=== PATIENT | male | born 1980 | race Caucasian/White ===

== ENCOUNTER 2018-06-14 13:52 | Emergency (ER) | payer MEDICARE, MEDICAID ==
--- NOTE | 2018-06-14 14:15 | EDM.PDOC ---
ED HPI GENERAL MEDICAL PROBLEM - General Chief Complaint: Upper Extremity Injury/Pain Stated Complaint: RIGHT SHOULDER IS HURTING Time Seen by Provider: 06/14/18 14:00 Source of Information: Reports: Patient, Old Records, RN, RN Notes Reviewed History Limitations: Reports: No Limitations - History of Present Illness INITIAL COMMENTS - FREE TEXT/NARRATIVE: Pt presents to ER from home by POV with c/o right shoulder pain. Pt states he began having the pain about 5 months ago with no injury or any known cause. Pt recently had a right shoulder MRI in [place], but does not know the results. He states that his doctor referred him to Dr. Morejon in [place] on July 03, 2018, and told him that if his pain if his pain increases to go to the ER in [place]. Pt is right hand dominate. He describes generalized shoulder pain that radiates into the right deltoid region. The pain is worse if he attempts abduction or has any repetitive use of the right arm. Onset: Gradual Duration: Constant Location: Reports: Upper Extremity, Right Quality: Reports: Ache, Same as Previous Episode Severity: Severe Improves with: Reports: Immobilization, Rest Worsens with: Reports: Movement Associated Symptoms: Reports: No Other Symptoms Treatments [employer]: Reports: Acetaminophen, Other (see below) (Gabapentin) Past Medical History Respiratory History: Reports: Other (See Below) (Tobacco dependence) Musculoskeletal History: Reports: Other (See Below) (Chronic right shoulder pain.) Endocrine/Metabolic History: Reports: Obesity/BMI 30+ Social & Family History - Family History Family Medical History: Noncontributory - Tobacco Use Smoking Status *Q: Current Every Day Smoker Tobacco Use Within Last Twelve Months: Cigarettes Years of Tobacco use: 20 Packs/Tins Daily: 1 - Living Situation & Occupation Living situation: Reports: with Family Occupation: Disabled Review of Systems - Review of Systems Review Of Systems: ROS reveals no pertinent complaints other than HPI. ED EXAM, GENERAL - Physical Exam Exam: See Below Exam Limited By: No Limitations General Appearance: Alert, No Apparent Distress, Obese Head: Atraumatic, Normocephalic Neck: Normal Inspection Respiratory/Chest: No Respiratory Distress Peripheral Pulses: 3+: Radial (L), Radial (R) Extremities: Normal Capillary Refill, Limited Range of Motion (Right shoulder with limited abduction, mild tenderness to palpation of the right shoulder in general with no visible swelling, bruising, erythema, or increased warmth.). No : Joint Swelling Neurological: Alert, Oriented, Normal Cognition, Normal Gait, No Motor/Sensory Deficits Psychiatric: Normal Mood Skin Exam: Warm, Dry, Intact, Normal Color, No Rash Course - Radiology Interpretation Free Text/Narrative:: MRI Right Shoulder requested from [facility]: Impression: Small intrasubstance rotator cuff tears at the supraspinatus and infraspinatus. Tendinosis of the subscapularis. Thickened inferior glenohumeral ligament. Mild AC degenerative arthrosis per Rad. report. Departure - Departure Time of Disposition: 14:53 Disposition: Home, Self-Care 01 Condition: Good Clinical Impression: Right rotator cuff tendonitis Right rotator cuff tear Qualifiers: Rotator cuff tear extent: incomplete Rotator cuff tear trauma status: nontraumatic Qualified Code(s): M75.111 - Incomplete rotator cuff tear or rupture of right shoulder, not specified as traumatic - Discharge Information *PRESCRIPTION DRUG MONITORING PROGRAM REVIEWED*: No *COPY OF PRESCRIPTION DRUG MONITORING REPORT IN PATIENT AKBAR: No Instructions: Rotator Cuff Tear, Rotator Cuff Tendinitis Forms: ED Department Discharge Additional Instructions: Rx: Naprosyn 500mg Rx: [place] 5mg/325mg *Do not drive while under the influence of this medication. Follow up with Dr. Morejon as scheduled.
== END 2018-06-14 15:10 | disposition home or self-care (01) ==
LOC: DL.ED 13:52
DX: M75.111 Incomplete rotator cuff tear or rupture of right shoulder, not specified as traumatic (principal); F17.210 Nicotine dependence, cigarettes, uncomplicated
CPT/HCPCS: 99282

== ENCOUNTER 2022-07-19 03:13 | Emergency (ER) | payer MEDICARE, MEDICAID | END 2022-07-19 04:35 | disposition home or self-care (01) | LOC: DL.ED 03:13 | DX: R44.0 Auditory hallucinations (principal); F22 Delusional disorders; I10 Essential (primary) hypertension; E66.9 Obesity, unspecified; Z88.6 Allergy status to analgesic agent; Z68.42 Body mass index [BMI] 45.0-49.9, adult; Z79.84 Long term (current) use of oral hypoglycemic drugs; Z79.899 Other long term (current) drug therapy | CPT/HCPCS: 99283; 99284 ==